=== PATIENT | female | born 1945 | race Caucasian/White ===

== ENCOUNTER 2017-03-11 10:26 | Outpatient (CLI) ==
[2015-06-02 07:37] VITALS: BMI 24.2
--- NOTE | 2017-03-11 11:42 | MAMMO ---
EXAM: Bilateral digital screening mammogram (2-D and 3-D) History: Screening Comparison: Bilateral mammogram 03/05/2016 Findings: MLO and CC views of bilateral breasts demonstrate scattered fibroglandular breast parenchy ma. CAD was reviewed by the radiologist. Tomosynthesis was performed. There are no dominant masses , no suspicious microcalcifications and no architectural distortions. Stable benign bilateral vascul ar calcifications Impression: Benign stable mammogram. Recommend followup routine screening mammography in 1 year. BIRADS 2
== END 2017-03-11 10:27 | disposition home or self-care (01) ==
LOC: RAD 10:26
PROVIDERS: ATTEND Family Medicine
DX: Z12.31 Encounter for screening mammogram for malignant neoplasm of breast (principal); Z78.0 Asymptomatic menopausal state
CPT/HCPCS: 77067

== ENCOUNTER 2017-03-27 10:25 | Emergency (ER) ==
[2017-03-27 10:29] VITALS: BP 156/71; TEMP 96.3; BMI 23.6
--- NOTE | 2017-03-27 10:33 | ED.PDOC ---
General ED Provider: Dr. KELLEY MIRANDA JR Chief Complaint: Shoulder Pain/Injury Stated Complaint: last week raked a lot and cleaned ditches of leaves. right shoulder started hurting later that night. used aspercreme hot and cold packs without relief[End]6 days ago 96.3 76 1 97% 156/71 09/15 Time Seen by Physician: 10:33 Mode of Arrival: Walk-In Information Source: Patient Exam Limitations: No limitations Primary Care Provider: ALBINA SILVA Nursing and Triage Documentation Reviewed and Agree: No Reviewed sepsis parameters & appropriate labs ordered?: No System Inflammatory Response Syndrome: Not Applicable Sepsis Protocol: For patient's 13 years and over: Temp is 96.8 and below OR 101 and greater Pulse >90 BPM Resp >20/minute Acutely Altered Mental Status Are patient's symptoms suggestive of a new infection, such as: -Pneumonia -Skin, Soft Tissue -Endocarditis -UTI -Bone, Joint Infection -Implantable Device -Acute Abdominal Infection -Wound Infection -Meningitis -Blood Stream Catheter Infection -Unknown System Inflammatory Response Syndrome: Not Applicable Review of Systems - Review Of Systems Constitutional: Reports: No symptoms Eyes: Reports: No symptoms Ears, Nose, Mouth, Throat: Reports: No symptoms Respiratory: Reports: No symptoms Cardiac: Reports: No symptoms GI: Reports: No symptoms : Reports: No symptoms Musculoskeletal: Reports: Joint pain, Muscle pain Skin: Reports: No symptoms Neurological: Reports: No symptoms Endocrine: Reports: No symptoms Hematologic/Lymphatic: Reports: No symptoms All Other Systems: Other Past Medical History - Past Medical History Previously Healthy: Yes Endocrine: Reports: None Cardiovascular: Reports: None Respiratory: Reports: Pneumonia Hematological: Reports: None Gastrointestinal: Reports: None Genitourinary: Reports: None Neuro/Psych: Reports: Anxiety, Depression Musculoskeletal: Reports: Arthritis Cancer: Reports: None Last Menstrual Period: none - Surgical History General Surgical History: Reports: Tubal ligation, Orthopedic (LEFT KNEE SURGERY ), Other (EYE SURGERY), Unknown - Family History Family History: Reports: Unknown - Social History Smoking Status: Current every day smoker Hx Substance Use: No Alcohol Screening: Occasionally Physical Exam - Physical Exam Appearance: Well-appearing, Ill-appearing Pain Distress: Moderate Neck: Supple Respiratory: Airway patent Musculoskeletal: Limited strength Critical Care Note - Critical Care Note Total Time (mins): 0 Course - Course Orders, Labs, Meds: Orders Category Date Time Status SHOULDER, RIGHT MIN 2V Stat RADS 03/27/17 10:32 Completed Vital Signs: Temp Pulse Resp BP Pulse Ox 03/27/17 10:25 96.3 F L 76 18 156/71 H 97 Departure - Departure Time of Disposition: 12:02 Disposition: HOME SELF-CARE Discharge Problem: Shoulder pain Muscle strain of right shoulder Qualifiers: Encounter type: initial encounter Qualified Code(s): S46.911A - Strain of unspecified muscle, fascia and tendon at shoulder and upper arm level, right arm , initial encounter Instructions: Muscle Strain (ED) Condition: Good Pt referred to PMD for follow-up: Yes Additional Instructions: no use right shoulder for three days no use right arm for three days may wear sling daily range of motion shoulder and elbow tylenol for pain Ultram for pain not releived ice 20minutes three times a day; then after three days ma try heat recheckPMD one week Prescriptions: Tramadol HCl [Ultram] 50 mg PO Q6H PRN #14 tablet PRN Reason: PAIN Allergies/Adverse Reactions: Allergies No Known Allergies Allergy (Verified 03/27/17 10:32) Home Medications: Ambulatory Orders Atorvastatin Calcium 20 mg PO DIRECTED 02/24/13 Buspirone HCl 15 mg PO BID 04/21/15 Alendronate Sodium 70 mg PO WEEKLY 06/01/15 Tramadol HCl [Ultram] 50 mg PO Q6H PRN #14 tablet 03/27/17
--- NOTE | 2017-03-27 11:13 | DI ---
Exam: Three x-rays of the right shoulder. Comparison: None available. Reason for exam: Shoulder pain. FINDINGS: No acute fracture or dislocation. The humeral head articulates to the bony glenoid. The clavicle is intact. No unexplained calcific soft tissue density or radiopaque retained foreign body. Impression: No acute fracture or dislocation in the right shoulder
== END 2017-03-27 12:21 | disposition home or self-care (01) ==
LOC: ED 10:25
DX: S46.911A Strain of unspecified muscle, fascia and tendon at shoulder and upper arm level, right arm, initial encounter (principal); X50.1XXA Overexertion from prolonged static or awkward postures, initial encounter; F17.210 Nicotine dependence, cigarettes, uncomplicated
CPT/HCPCS: 99283

== ENCOUNTER 2017-12-07 10:08 | Emergency (ER) | payer OTHER ==
[2017-12-07 10:13] VITALS: BP 178/64; TEMP 98.5; BMI 3304.2
--- NOTE | 2017-12-07 11:31 | ED.PDOC ---
General ED Provider: Dr. ISABELLE LOPEZ Chief Complaint: Non-specific Complaint Stated Complaint: Patient stats that she had skin graft on the right elbow from right thigh3 days ago. She had an Op-site dressing placed. She noticed it was oozing blood and it started draining down her leg. She denies any pain. She will be following up with her surgeon in 4 days. Time Seen by Physician: 10:30 Mode of Arrival: Walk-In Information Source: Patient Primary Care Provider: ALBINA SILVA Nursing and Triage Documentation Reviewed and Agree: Yes Does patient meet sepsis criteria?: No If yes, has appropriate treatment been initiated?: No System Inflammatory Response Syndrome: Not Applicable Sepsis Protocol: For patient's 13 years and over: Temp is 96.8 and below OR 101 and greater Pulse >90 BPM Resp >20/minute Acutely Altered Mental Status Are patient's symptoms suggestive of a new infection, such as: -Pneumonia -Skin, Soft Tissue -Endocarditis -UTI -Bone, Joint Infection -Implantable Device -Acute Abdominal Infection -Wound Infection -Meningitis -Blood Stream Catheter Infection -Unknown Skin Complaint Exam - Skin/Soft Tissue Complaint/Exam Onset/Duration: 3 days Symptoms Are: Still present Timing: Constant Location: Right anterior thign Character: Reports: Redness (with blood ozzing. ). Denies: Swelling, Raised, Painful Aggravating: Reports: None Alleviating: Reports: None Associated Signs and Symptoms: Denies: Fever, Chills, Itching, Drainage, Bruising, Tenderness, Red streaks, Joint swelling Related History: Reports: Recent inpatient Recent Exposure to Others w/Similar Symptoms: No Skin Findings: Present: Erythema (healing would ) Differential Diagnoses: Cellulitis, Infection, Lymphadenitis, Other (post op wound ) Review of Systems - Review Of Systems Constitutional: Reports: No symptoms Eyes: Reports: No symptoms Ears, Nose, Mouth, Throat: Reports: No symptoms Respiratory: Reports: No symptoms Cardiac: Reports: No symptoms GI: Reports: No symptoms : Reports: No symptoms Musculoskeletal: Reports: No symptoms Skin: Reports: Bruising Neurological: Reports: Anxiety Endocrine: Reports: No symptoms Hematologic/Lymphatic: Reports: No symptoms All Other Systems: Reviewed and Negative Past Medical History - Past Medical History Previously Healthy: Yes Endocrine: Reports: None Cardiovascular: Reports: None Respiratory: Reports: Pneumonia Hematological: Reports: None Gastrointestinal: Reports: None Genitourinary: Reports: None Neuro/Psych: Reports: Anxiety, Depression Musculoskeletal: Reports: Arthritis Cancer: Reports: Skin (Melnoma ) Last Menstrual Period: N/A - Surgical History General Surgical History: Reports: Tubal ligation, Orthopedic (LEFT KNEE SURGERY ), Other (EYE SURGERY, Melenoma resection right elbow and skin graft from the right thigh.), Unknown - Family History Family History: Reports: Unknown - Social History Smoking Status: Current every day smoker, Light tobacco smoker Hx Substance Use: No Alcohol Screening: Occasionally - Immunizations Tetanus Shot up to Date: Yes Physical Exam - Physical Exam Appearance: Well-appearing, No pain distress, Well-nourished Eyes: YVONNE, EOMI, Conjunctiva clear ENT: Ears normal, Nose normal, Oropharynx normal Respiratory: Airway patent, Breath sounds clear, Breath sounds equal, Respirations nonlabored Cardiovascular: RRR, Pulses normal, No rub, No murmur Musculoskeletal: Normal strength, No edema, No calf tenderness, Limited ROM ( right shoulder with a sling on ) Skin: Warm, Dry Neurological: Sensation intact, Motor intact, Reflexes intact, Cranial nerves intact, Alert, Oriented Psychiatric: Anxious Physician Notification - Case Discussed Physician Notified: [facility] [employer] Time of Notification: 11:00 (ok to remove opside and replace with telfa. Follow up in 4 days as scheduled. ) Critical Care Note - Critical Care Note Total Time (mins): 0 Comments: discussed with [facility] surgery team who recommended removal of opsite dressing and use of Telfa with gauze and have her follow up with surgery as scheduled. Course - Course Vital Signs: Temp Pulse Resp BP Pulse Ox 12/07/17 10:08 98.5 F 70 20 178/64 H 96 Departure - Departure Time of Disposition: 11:33 Disposition: HOME SELF-CARE Discharge Problem: Visit for wound check Instructions: Acute Wound Care (ED) Condition: Stable Pt referred to PMD for follow-up: Yes IPMP verified?: No Additional Instructions: Follow up with your surgeon next week return if worse. change dressing as needed. Allergies/Adverse Reactions: Allergies adhesive tape Adverse Reaction (Verified 12/07/17 10:14) Home Medications: Ambulatory Orders Atorvastatin Calcium 20 mg PO DIRECTED 02/24/13 Buspirone HCl 15 mg PO BID 04/21/15 Alendronate Sodium 70 mg PO WEEKLY 06/01/15 Tramadol HCl [Ultram] 50 mg PO Q6H PRN #14 tablet 03/27/17 Disposition Discussed With: Patient, Family
== END 2017-12-07 12:00 | disposition home or self-care (01) ==
LOC: ED 10:08
DX: L76.22 Postprocedural hemorrhage of skin and subcutaneous tissue following other procedure (principal); F17.210 Nicotine dependence, cigarettes, uncomplicated
CPT/HCPCS: 99282

== ENCOUNTER 2018-08-08 07:07 | Outpatient (CLI) | payer OTHER ==
--- NOTE | 2018-08-08 09:07 | CT ---
EXAM: CT of the chest with contrast History: Melanoma, history of smoking, history of right axillary lymphadenectomy Comparison: Chest radiograph 12/02/2012 Technique: Multiplanar CT images through the thorax were obtained following administration of IV con trast Findings: Heart size is normal. No pericardial effusion. Great vessels are unremarkable. Surgical clips are seen within the right axilla. No pathologically enlarged thoracic lymph nodes. Emphysema . Subsegmental atelectasis or scarring is seen within the right upper lung, similar to the prior [facility] x-ray. There is no consolidated pneumonia. No pleural fluid and no pneumothorax. No suspicious lung masses or lung nodules. Within the visualized upper abdomen, no acute findings. No acute osseous abnormalities. Impression: 1. No acute intrathoracic process. 2. No malignant findings. 3. Emphysema. 4. Stable subsegmental atelectasis or scarring within the right upper lobe.
== END 2018-08-08 07:08 | disposition home or self-care (01) ==
LOC: RAD 07:07
PROVIDERS: ATTEND Family Medicine
DX: C43.61 Malignant melanoma of right upper limb, including shoulder (principal); Z72.0 Tobacco use